=== PATIENT | female | born 1970 | race Caucasian/White ===

== ENCOUNTER 2018-11-08 20:33 | Inpatient (IN) | payer MEDICAID ==
[~2018-11-08] VITALS: Ht 165.1 cm; Wt 91.0 kg
[~2018-11-08 20:33] MED LIST: DOCU-144 PO; FER325 PO; MEDR10TA9 PO; ONDA4TAB14 PO
[2018-11-08] MEDS ORDERED: SOD CHLORIDE 0.9% 500 ML IV ONE (22:00)
[2018-11-08] MEDS ORDERED: morphine 4 MG/ML VIAL IV STA (22:29)
[2018-11-08] MEDS ORDERED: ONDANSETRON 4 MG INJ IV STA (22:29)
[2018-11-09] VITALS (15 sets, daily range): BP systolic 118–140; BP diastolic 66–76; PULSE 58–85; RESP 16–24; Ht 165.1 cm; Wt 91.0 kg
[2018-11-09] MEDS ORDERED: ONDANSETRON 4 MG INJ IV PRN ×2 (02:00→05:00)
[2018-11-09] MEDS ORDERED: ACETAMINOPHEN 325 MG TAB PO PRN ×2 (02:00→05:00)
--- NOTE | 2018-11-09 02:47 | ERD ---
ER Documentation Chief Complaint Chief Complaint VAGINAL BLEEDING WITH CLOTS X 1 MONTH. APPROX 20 PADS/DAY. HPI This is a very pleasant 48-year-old female who comes in with vaginal bleeding with clots for the past month. She said approximately 20 pads per day over the past 4 days. Denies fevers chills. Does feel mildly lightheaded. Complains of lower abdominal cramping as well. Denies any other current issues. ROS All systems reviewed and are negative except as per history of present illness. Medications Home Meds Discontinued Scripts Ondansetron (Ondansetron Odt) 4 Mg Tab.rapdis, 4 MG PO Q6H PRN for NAUSEA AND/OR VOMITING, #20 TAB Prov:PAULO SHERIFF PA-C 03/21/16 Docusate Sodium* (Colace*) 100 Mg Capsule, 100 MG PO TID, #30 CAP Prov:PAULO SHERIFF PA-C 03/21/16 Ferrous Sulfate* (Ferrous Sulfate*) 325 Mg Tabec, 325 MG PO BID, #60 TAB Prov:PAULO SHERIFF PA-C 03/21/16 Allergies Allergies: Uncoded Allergies: UNKNOWN ANTIBIOTIC (Allergy, Mild, PAIN, 12/07/11) PMhx/Soc History of Surgery: Yes (CLAUDIA) Anesthesia Reaction: No Hx Neurological Disorder: No Hx Respiratory Disorders: No Hx Cardiac Disorders: No Hx Psychiatric Problems: No Hx Miscellaneous Medical Probl: No Hx Alcohol Use: No Hx Substance Use: No Hx Tobacco Use: No Smoking Status: Never smoker Physical Exam Vitals Vital Signs Date Temp Pulse Resp B/P (MAP) Pulse Ox O2 O2 Flow FiO2 Time Delivery Rate 11/08/18 98.6 96 18 149/75 99 20:34 (99) Physical Exam Const: No acute distress Head: Atraumatic Eyes: Normal Conjunctiva ENT: Normal External Ears, Nose and Mouth. Neck: Full range of motion. No meningismus. Resp: Clear to auscultation bilaterally Cardio: Regular rate and rhythm, no murmurs Abd: Soft, non tender, non distended. Normal bowel sounds Skin: No petechiae or rashes Back: No midline or flank tenderness Ext: No cyanosis, or edema Neur: Awake and alert Psych: Normal Mood and Affect Result Diagram: 11/08/18214711/08/182147 Results 24 hrs Laboratory Tests Test 11/08/18 21:32 11/08/18 21:48 Urine Color KEERTHI Urine Clarity TURBID Urine pH 6.0 Urine Specific Labadie 1.033 Urine Ketones TRACE mg/dL Urine Nitrite NEGATIVE mg/dL Urine Bilirubin NEGATIVE mg/dL Urine Urobilinogen NEGATIVE mg/dL Urine Leukocyte Esterase NEGATIVE Sav/ul Urine Microscopic RBC > 182 /HPF Urine Microscopic WBC > 182 /HPF Urine Bacteria FEW /HPF Urine Mucus MODERATE /HPF Urine Hemoglobin 3+ mg/dL Urine Glucose 1+ mg/dL Urine Total Protein 2+ mg/dl Urine Test NEGATIVE White Blood Count 8.2 10^3/ul Red Blood Count 3.88 10^6/ul Hemoglobin 7.2 g/dl Hematocrit 26.4 % Mean Corpuscular Volume 68.0 fl Mean Corpuscular Hemoglobin 18.6 pg Mean Corpuscular Hemoglobin Concent 27.3 g/dl Red Cell Distribution Width 21.8 % Platelet Count 154 10^3/UL Mean Platelet Volume fl Immature Granulocytes % 0.400 % Neutrophils % 53.9 % Lymphocytes % 33.9 % Monocytes % 9.8 % Eosinophils % 1.6 % Basophils % 0.4 % Nucleated Red Blood Cells % 0.0 /100WBC Immature Granulocytes # 0.030 10^3/ul Neutrophils # 4.4 10^3/ul Lymphocytes # 2.8 10^3/ul Monocytes # 0.8 10^3/ul Eosinophils # 0.1 10^3/ul Basophils # 0.0 10^3/ul Nucleated Red Blood Cells # 0.0 10^3/ul Prothrombin Time 12.7 Sec Prothrombin Time Ratio 1.0 INR International Normalized Ratio 0.94 Activated Partial Thromboplast Time 20.6 Sec Sodium Level 140 mmol/L Potassium Level 3.9 mmol/L Chloride Level 107 mmol/L Carbon Dioxide Level 24 mmol/L Anion Gap 9 Blood Urea Nitrogen 17 mg/dl Creatinine 0.75 mg/dl Est Glomerular Filtrat Rate mL/min > 60 mL/min Glucose Level 94 mg/dl Calcium Level 9.3 mg/dl Total Bilirubin 0.2 mg/dl Direct Bilirubin 0.00 mg/dl Indirect Bilirubin 0.2 mg/dl Aspartate Amino Transf (AST/SGOT) 23 IU/L Alanine Aminotransferase (ALT/SGPT) 10 IU/L Alkaline Phosphatase 65 IU/L Total Protein 8.2 g/dl Albumin 4.3 g/dl Globulin 3.90 g/dl Albumin/Globulin Ratio 1.10 Current Medications Medications Dose Sig/Tonny Start Time Status Last (Trade) Ordered Route PRN Stop Time Admin Dose Reason Admin Sodium 500 ml @ Q1H ONCE 11/08/18 DC 11/08/18 Chloride 500 mls/hr IV 22:00 22:04 11/08/18 22:59 Morphine 4 mg ONCE STAT 11/08/18 DC 11/08/18 Sulfate IV 22: 22:34 (morphine) 11/08/18 22:31 Ondansetron 4 mg ONCE STAT 11/08/18 DC 11/08/18 HCl (Zofran IV 22: 22:34 Inj) 11/08/18 22:31 Ondansetron 4 mg BRIDGE ORDER 11/09/18 HCl (Zofran PRN IV 02:00 Inj) NAUSEA/VOMITI 11/10/18 01:59 NG 650 mg ER BRIDGE 11/09/18 Acetaminophen PRN PO 02:00 (Tylenol .MILD PAIN 11/10/18 01:59 Tab) 1-3 OR TEMP Procedures/MDM Medical decision makin-year-old female with dysfunctional uterine bleeding and anemia. Patient is typed and crossed for 2 units. A consult was placed for Dr. Moralez 3 telemetric. the hospitalist group has can accept patient to his service. Departure Diagnosis: Primary Impression: Vaginal bleeding Additional Impression: Excessive vaginal bleeding Condition: Serious MARYSE HARVEY Nov 09, 2018 02:47
[2018-11-09] MEDS ORDERED: NACL 0.9% 3 ML SYG IV SCH (05:00)
[2018-11-09] MEDS ORDERED: ALBUTEROL/IPRATROPIUM (NEB) 3 ML AMP HHN PRN (05:00)
--- NOTE | 2018-11-09 08:21 | HP ---
Date/Time of Note Date/Time of Note DATE: 11/09/18 TIME: 08:19 Assessment/Plan VTE Prophylaxis Risk score (from [facility] [place])>0 risk: 1 SCD applied (from [facility] [place]): Yes Pharmacological prophylaxis: NA/contraindicated Pharm contraindication: other (severe anemia) Lines/Catheters IV [facility] (from [facility] Saline Lock Urinary Cath still in place: No Assessment/Plan Assessment/Plan #Vaginal bleeding: Ultrasound showed heterogeneous uterus, cannot rule out fibroids as the possible source of this -Again patient getting PRBC transfuse and, follow-up posttransfusion CBC -Also follow-up recs from [employer]PLI[employer] DEMONSTRATOR team. # anemia: Hemoglobin 6.9 on admission, now getting PRBC transfusion x3 total ordered. -Monitor, check iron panel as MCV is low, follow-up post transfusion CBC -Patient may also benefit from either IV or p.o. iron supplementation Result Diagram: 11/09/18 0533 11/09/18 0533 Results 24hrs Laboratory Tests Test 11/08/18 21:32 11/08/18 21:48 11/09/18 05:33 11/09/18 07:57 Urine Color KEERTHI Urine Clarity TURBID A Urine pH 6.0 Urine Specific 1.033 H [place] Urine Ketones TRACE A Urine Nitrite NEGATIVE Urine Bilirubin NEGATIVE Urine NEGATIVE Urobilinogen Urine Leukocyte NEGATIVE Esterase Urine Microscopic > 182 H RBC Urine Microscopic > 182 H WBC Urine Bacteria FEW A Urine Mucus MODERATE Urine Hemoglobin 3+ H Urine Glucose 1+ H Urine Total 2+ H Protein Urine NEGATIVE Test White Blood Count 8.2 5.8 # Red Blood Count 3.88 L 3.57 L Hemoglobin 7.2 L 6.9 *L Hematocrit 26.4 L 24.6 L Mean Corpuscular 68.0 L 68.9 L Volume Mean Corpuscular 18.6 L 19.3 L Hemoglobin Mean Corpuscular 27.3 L 28.0 L Hemoglobin Concen t Red Cell 21.8 H 22.7 H Distribution Width Platelet Count 154 209 # Mean Platelet 10.8 H Volume Immature 0.400 0.200 Granulocytes % Neutrophils % 53.9 45.1 Lymphocytes % 33.9 38.3 Monocytes % 9.8 12.9 H Eosinophils % 1.6 3.0 Basophils % 0.4 0.5 Nucleated Red 0.0 0.0 Blood Cells % Immature 0.030 0.010 Granulocytes # Neutrophils # 4.4 2.6 Lymphocytes # 2.8 2.2 Monocytes # 0.8 0.7 Eosinophils # 0.1 0.2 Basophils # 0.0 0.0 Nucleated Red 0.0 0.0 Blood Cells # Prothrombin Time 12.7 Prothrombin Time 1.0 Ratio INR International 0.94 Normalized Ratio Activated 20.6 L Partial Thrombopl ast Time Sodium Level 140 141 Potassium Level 3.9 4.0 Chloride Level 107 112 H Carbon Dioxide 24 22 Level Anion Gap 9 7 Blood Urea 17 13 Nitrogen Creatinine 0.75 0.56 Est Glomerular > 60 > 60 Filtrat Rate mL/min Glucose Level 94 99 Calcium Level 9.3 8.3 L Total Bilirubin 0.2 0.5 Direct Bilirubin 0.00 0.00 Indirect 0.2 0.5 Bilirubin Aspartate Amino 23 17 Transf (AST/SGOT) Alanine 10 L 15 Aminotransferase (ALT/SGPT) Alkaline 65 55 Phosphatase Total Protein 8.2 H 6.4 # Albumin 4.3 3.3 # Globulin 3.90 H 3.10 Albumin/Globulin 1.10 1.06 Ratio Phosphorus Level 4.6 Magnesium Level 1.9 Lab Scanned BLOOD TRANSFUSIO Report N HPI/ROS Admit Date/Time Admit Date/Time Nov 09, 2018 at 01:34 Hx of Present Illness Patient is a 48-year-old female who presents the ER complaining of vaginal bleeding and suprapubic pain. She said recently especially over the past 4 days having a large amount of vaginal bleeding. Denied prior history. She also reported pain in the suprapubic area. She presented to ER, she was found to have a hemoglobin of 7.2. Pelvic ultrasound shows Enlarged heterogeneous uterus with no discrete mass PMH/Family/Social Past Medical History Medical History: other (see hpi) Medications Current Medications Ondansetron HCl (Zofran Inj) 4 mg BRIDGE ORDER PRN IV NAUSEA/VOMITING; Start 11/09/18 at 02:00; Stop 11/10/18 at 01:59 Acetaminophen (Tylenol Tab) 650 mg ER BRIDGE PRN PO .MILD PAIN 1-3 OR TEMP; Start 11/09/18 at 02:00; Stop 11/10/18 at 01:59 IV Flush (NS 3 ml) 3 ml PER PROTOCOL IV ; Start 11/09/18 at 05:00 Ondansetron HCl (Zofran Inj) 4 mg Q6H PRN IV NAUSEA/VOMITING; Start 11/09/18 at 05:00 Acetaminophen (Tylenol Tab) 650 mg Q6H PRN PO .PAIN 1-3 OR TEMP; Start 11/09/18 at 05:00 Albuterol/ Ipratropium (Duoneb) 3 ml Q2H RESP THERAPY PRN HHN SHORTNESS OF BREATH; Start 11/09/18 at 05:00 Ceftriaxone Sodium 50 ml @ 100 mls/hr DAILY IVPB ; Start 11/09/18 at 09:00 Uncoded Allergies: UNKNOWN ANTIBIOTIC (Allergy, Mild, PAIN, 12/07/11) Past Surgical History Past Surgical Hx: other (see hpi) Family History Significant Family History: no pertinent family hx Social History Alcohol Use: none Smoking Status: Never smoker Drug Use: none Exam/Review of Systems Vital Signs Vitals Vital Signs Date Temp Pulse Resp B/P (MAP) Pulse Ox O2 O2 Flow FiO2 Time Delivery Rate 11/09/18 98.0 70 18 139/67 99 Room Air 03:57 (91) Intake and Output 11/08/18 11/08/18 11/09/18 1515:00 23:00 07:00 IntakeIntake Total 100 ml BalanceBalance 100 ml Exam Constitutional: alert, oriented, well developed Head: normocephalic Eyes: EOMI, PERRL ENMT: nl external ears & nose Neck: supple Respiratory: clear to auscultation, normal air movement Cardiovascular: nl pulses Gastrointestinal: soft Extremities: normal pulses MARYSE GARNICA MD Nov 09, 2018 08:20
[2018-11-09] MEDS ORDERED: CEFTRIAXONE 1 GM/50 ML (PMX) 50 ML IVPB SCH (09:00)
--- NOTE | 2018-11-09 13:16 | PN ---
Date/Time of Note Date/Time of Note DATE: 11/09/18 TIME: 13:03 Assessment/Plan VTE Prophylaxis Risk score (from Ns)>0 risk: 1 SCD applied (from Ns): Yes Pharmacological prophylaxis: NA/contraindicated Pharm contraindication: bleeding Lines/Catheters [facility]from [facility] Saline Lock Urinary Cath still in place: No Assessment/Plan Hospital Course S: Patient receiving blood transfusion now. Waiting to be seen by CALIBRATION CHECKER team. Denies any significant abdominal pain at this time. O: VS- see below PE: Gen: No acute distress Head: Atraumatic Eyes: Normal Conjunctiva ENT: Normal External Ears, Nose and Mouth. Neck: supple Resp: Clear to auscultation bilaterally Cardio: Regular rate and rhythm, no murmurs Abd: Soft, non tender, non distended. Normal bowel sounds Ext: No B/L LE edema Neuro: no focal deficits A/P: 48-year-old female who presents the ER complaining of vaginal bleeding and suprapubic pain, and also with anemia. #Vaginal bleeding: Ultrasound showed heterogeneous uterus, cannot rule out fibroids as the possible source of this -Again patient getting PRBC transfuse and, follow-up posttransfusion CBC -Also follow-up recs from CALIBRATION CHECKER team. # anemia: Hemoglobin 6.9 on admission, now getting PRBC transfusion x3 total ordered. -Monitor, check iron panel as MCV is low, follow-up post transfusion CBC -Patient may also benefit from either IV or p.o. iron supplementation Result Diagram: 11/09/18 0533 11/09/18 0533 Results 24hrs Laboratory Tests Test 11/08/18 21:32 11/08/18 21:48 11/09/18 05:33 11/09/18 07:57 Urine Color KEERTHI Urine Clarity TURBID A Urine pH 6.0 Urine Specific 1.033 H [place] Urine Ketones TRACE A Urine Nitrite NEGATIVE Urine Bilirubin NEGATIVE Urine NEGATIVE Urobilinogen Urine Leukocyte NEGATIVE Esterase Urine Microscopic > 182 H RBC Urine Microscopic > 182 H WBC Urine Bacteria FEW A Urine Mucus MODERATE Urine Hemoglobin 3+ H Urine Glucose 1+ H Urine Total 2+ H Protein Urine NEGATIVE Test White Blood Count 8.2 5.8 # Red Blood Count 3.88 L 3.57 L Hemoglobin 7.2 L 6.9 *L Hematocrit 26.4 L 24.6 L Mean Corpuscular 68.0 L 68.9 L Volume Mean Corpuscular 18.6 L 19.3 L Hemoglobin Mean Corpuscular 27.3 L 28.0 L Hemoglobin Concen t Red Cell 21.8 H 22.7 H Distribution Width Platelet Count 154 209 # Mean Platelet 10.8 H Volume Immature 0.400 0.200 Granulocytes % Neutrophils % 53.9 45.1 Lymphocytes % 33.9 38.3 Monocytes % 9.8 12.9 H Eosinophils % 1.6 3.0 Basophils % 0.4 0.5 Nucleated Red 0.0 0.0 Blood Cells % Immature 0.030 0.010 Granulocytes # Neutrophils # 4.4 2.6 Lymphocytes # 2.8 2.2 Monocytes # 0.8 0.7 Eosinophils # 0.1 0.2 Basophils # 0.0 0.0 Nucleated Red 0.0 0.0 Blood Cells # Prothrombin Time 12.7 Prothrombin Time 1.0 Ratio INR International 0.94 Normalized Ratio Activated 20.6 L Partial Thrombopl ast Time Sodium Level 140 141 Potassium Level 3.9 4.0 Chloride Level 107 112 H Carbon Dioxide 24 22 Level Anion Gap 9 7 Blood Urea 17 13 Nitrogen Creatinine 0.75 0.56 Est Glomerular > 60 > 60 Filtrat Rate mL/min Glucose Level 94 99 Calcium Level 9.3 8.3 L Total Bilirubin 0.2 0.5 Direct Bilirubin 0.00 0.00 Indirect 0.2 0.5 Bilirubin Aspartate Amino 23 17 Transf (AST/SGOT) Alanine 10 L 15 Aminotransferase (ALT/SGPT) Alkaline 65 55 Phosphatase Total Protein 8.2 H 6.4 # Albumin 4.3 3.3 # Globulin 3.90 H 3.10 Albumin/Globulin 1.10 1.06 Ratio Segmented 43 Neutrophils % (Manual) Lymphocytes % 50 (Manual) Monocytes % 5 (Manual) Eosinophils % 1 (Manual) Basophils % 1 (Manual) Lymphocytes 2.9 (Manual) Monocytes # 0.2 L (Manual) Basophils # 0.0 (Manual) Platelet Estimate NORMAL Polychromasia 3+ Hypochromasia 3+ Poikilocytosis 2+ Anisocytosis 2+ Microcytosis 2+ Target Cells 1+ Ovalocytes 1+ Elliptocytes 1+ Phosphorus Level 4.6 Magnesium Level 1.9 Lab Scanned BLOOD TRANSFUSIO Report N Exam/Review of Systems Exam Vitals Vital Signs Date Temp Pulse Resp B/P (MAP) Pulse Ox O2 O2 Flow FiO2 Time Delivery Rate 11/09/18 98.3 85 18 125/73 98 Room Air 08:21 (90) Intake and Output 11/08/18 11/08/18 11/09/18 1515:00 23:00 07:00 IntakeIntake Total 100 ml BalanceBalance 100 ml Results Results 24hrs Laboratory Tests Test 11/08/18 21:32 11/08/18 21:48 11/09/18 05:33 11/09/18 07:57 Urine Color KEERTHI Urine Clarity TURBID A Urine pH 6.0 Urine Specific 1.033 H [place] Urine Ketones TRACE A Urine Nitrite NEGATIVE Urine Bilirubin NEGATIVE Urine NEGATIVE Urobilinogen Urine Leukocyte NEGATIVE Esterase Urine Microscopic > 182 H RBC Urine Microscopic > 182 H WBC Urine Bacteria FEW A Urine Mucus MODERATE Urine Hemoglobin 3+ H Urine Glucose 1+ H Urine Total 2+ H Protein Urine NEGATIVE Test White Blood Count 8.2 5.8 # Red Blood Count 3.88 L 3.57 L Hemoglobin 7.2 L 6.9 *L Hematocrit 26.4 L 24.6 L Mean Corpuscular 68.0 L 68.9 L Volume Mean Corpuscular 18.6 L 19.3 L Hemoglobin Mean Corpuscular 27.3 L 28.0 L Hemoglobin Concen t Red Cell 21.8 H 22.7 H Distribution Width Platelet Count 154 209 # Mean Platelet 10.8 H Volume Immature 0.400 0.200 Granulocytes % Neutrophils % 53.9 45.1 Lymphocytes % 33.9 38.3 Monocytes % 9.8 12.9 H Eosinophils % 1.6 3.0 Basophils % 0.4 0.5 Nucleated Red 0.0 0.0 Blood Cells % Immature 0.030 0.010 Granulocytes # Neutrophils # 4.4 2.6 Lymphocytes # 2.8 2.2 Monocytes # 0.8 0.7 Eosinophils # 0.1 0.2 Basophils # 0.0 0.0 Nucleated Red 0.0 0.0 Blood Cells # Prothrombin Time 12.7 Prothrombin Time 1.0 Ratio INR International 0.94 Normalized Ratio Activated 20.6 L Partial Thrombopl ast Time Sodium Level 140 141 Potassium Level 3.9 4.0 Chloride Level 107 112 H Carbon Dioxide 24 22 Level Anion Gap 9 7 Blood Urea 17 13 Nitrogen Creatinine 0.75 0.56 Est Glomerular > 60 > 60 Filtrat Rate mL/min Glucose Level 94 99 Calcium Level 9.3 8.3 L Total Bilirubin 0.2 0.5 Direct Bilirubin 0.00 0.00 Indirect 0.2 0.5 Bilirubin Aspartate Amino 23 17 Transf (AST/SGOT) Alanine 10 L 15 Aminotransferase (ALT/SGPT) Alkaline 65 55 Phosphatase Total Protein 8.2 H 6.4 # Albumin 4.3 3.3 # Globulin 3.90 H 3.10 Albumin/Globulin 1.10 1.06 Ratio Segmented 43 Neutrophils % (Manual) Lymphocytes % 50 (Manual) Monocytes % 5 (Manual) Eosinophils % 1 (Manual) Basophils % 1 (Manual) Lymphocytes 2.9 (Manual) Monocytes # 0.2 L (Manual) Basophils # 0.0 (Manual) Platelet Estimate NORMAL Polychromasia 3+ Hypochromasia 3+ Poikilocytosis 2+ Anisocytosis 2+ Microcytosis 2+ Target Cells 1+ Ovalocytes 1+ Elliptocytes 1+ Phosphorus Level 4.6 Magnesium Level 1.9 Lab Scanned BLOOD TRANSFUSIO Report N Medications Medication Current Medications IV Flush (NS 3 ml) 3 ml PER PROTOCOL IV ; Start 11/09/18 at 05:00 Ondansetron HCl (Zofran Inj) 4 mg Q6H PRN IV NAUSEA/VOMITING; Start 11/09/18 at 05:00 Acetaminophen (Tylenol Tab) 650 mg Q6H PRN PO .PAIN 1-3 OR TEMP; Start 11/09/18 at 05:00 Albuterol/ Ipratropium (Duoneb) 3 ml Q2H RESP THERAPY PRN HHN SHORTNESS OF BREATH; Start 11/09/18 at 05:00 KEITH MOCK Nov 09, 2018 13:16
[2018-11-09] MEDS: MEDROXYPROGESTERONE 10 MG TAB PO SCH (15:27)
--- NOTE | 2018-11-09 16:50 | QN ---
Documentation Comment Dock Operator Consult: Thank you for consulting with us It was brought up to my Attention that ,oncall laborist from yesterday were consulted on this patient 48 yo with Menorrhagia and Anemia , PMH Denies PSH denies Allergy To unknown Antibiotics Hb 6.9 PE VS stable Gen NAD Abd soft NT ND Genitalia 2-3cc clots in vaginal vault --->patient needs a D&C&Hysteroscopy or Endometrial biopsy that can be done as an outpatient --->She is not NPO at this time so the procedure is not doable during my call.The patient will be signed out to ,next laborist --->I recommend Provera 40 mg PO daily or Megace 40 mg PO daily --->If there is any increased Vaginal bleeding or any new symptoms .please let Dock Operator team know Thanks RAMY DOYLE M.D. Nov 09, 2018 16:50
[2018-11-10 02:08] VITALS: BP 116/69; PULSE 74; RESP 18
[2018-11-10 07:37] VITALS: BP 112/66; PULSE 60; RESP 18
[2018-11-10] MEDS: MEDROXYPROGESTERONE 10 MG TAB PO SCH (09:28)
--- NOTE | 2018-11-10 12:59 | PDOCDIS ---
Discharge Instructions CONDITION [id number] Patient Condition: [id number] Stable HOME CARE INSTRUCTIONS: [id number] Diet Instructions: [id number] Low Fat /Cholesterol ACTIVITY: [id number] Activity Restrictions: [id number] Slowly Increase Activity Rest between Activity Avoid heavy lifting FOLLOW UP/APPOINTMENTS Follow-up Plan Please take your medication as prescribed, see your doctor in clinic in the next 1 week. KEITH MOCK. Nov 10, 2018 12:59
--- NOTE | 2018-11-10 13:16 | DS ---
Date/Time of Note Date/Time of Note DATE: 11/10/18 TIME: 13:14 Discharge Summary Admission/Discharge Info Admit Date/Time Nov 09, 2018 at 01:34 Discharge Date/Time Discharge Diagnosis #Vaginal bleeding: Resolving now, ultrasound showed heterogeneous uterus, cannot rule out fibroids as the possible source of this -evaluated by [employer] AS[employer] SUPERVISOR team and started on progesterone # anemia: Microcytic likely secondary deficiency anemia, status post PRBC transfusion, hemoglobin stable now Patient Condition: Stable Hospital Course Patient was admitted and given blood transfusion x3. Hemoglobin improved afterwards. Patient's vaginal bleeding symptoms improved and was minimal by the time of discharge. She was evaluated by [employer] SUPERVISOR team and started on progesterone. She was also recommended eventually for an outpatient endometrial biopsy which we are trying to arrange for the patient to follow-up with an [employer] SUPERVISOR doctor in the clinic. Her vital signs are stable today, she is ambulating, tolerating p.o. diet. She will be discharged home today improved condition with those resources. See below for full list of discharge medications. Home Meds Active Scripts Docusate Sodium* (Colace*) 100 Mg Capsule, 100 MG PO BID, #60 CAP 4 Refills Prov:NISHKEITH S. 11/10/18 Ferrous Sulfate* (Ferrous Sulfate*) 325 Mg Tabec, 325 MG PO BID, #60 TAB 5 Refills Prov:MARITZAKEITH S. 11/10/18 Medroxyprogesterone Acetate* (Medroxyprogesterone Acetate*) 10 Mg Tablet, 40 MG PO DAILY, #30 TAB 3 Refills Prov:MARITZAROSAKEITH S. 11/10/18 Discontinued Scripts Ondansetron (Ondansetron Odt) 4 Mg Tab.rapdis, 4 MG PO Q6H PRN for NAUSEA AND/OR VOMITING, #20 TAB Prov:PAULO SHERIFF PA-C 03/21/16 Docusate Sodium* (Colace*) 100 Mg Capsule, 100 MG PO TID, #30 CAP Prov:PAULO SHERIFF PA-C 03/21/16 Ferrous Sulfate* (Ferrous Sulfate*) 325 Mg Tabec, 325 MG PO BID, #60 TAB Prov:PAULO SHERIFF PA-C 03/21/16 Follow-up Plan Please take your medication as prescribed, see your doctor in clinic in the next 1 week. Primary Care Provider Not On Staff Doctor Time spent on discharge: > 30 minutes Pending Labs Laboratory Tests Test 11/10/18 04:39 11/10/18 07:09 White Blood Count 5.9 10^3/ul (4.8-10.8) Red Blood Count 4.06 10^6/ul (4.20-5.40) Hemoglobin 8.5 g/dl (12.0-16.0) Hematocrit 29.0 % (37.0-47.0) Mean Corpuscular Volume 71.4 fl (82.0-101.0) Mean Corpuscular Hemoglobin 20.9 pg (29.0-33.0) Mean Corpuscular 29.3 g/dl (32.0-37.0) Hemoglobin Concent Red Cell Distribution Width 24.2 % (11.5-14.5) Platelet Count 204 10^3/UL (140-415) Mean Platelet Volume 10.3 fl (7.4-10.4) Immature Granulocytes % 0.300 % (0.001-0.429) Neutrophils % 55.4 % (39.0-77.0) Lymphocytes % 31.9 % (15.0-51.0) Monocytes % 9.5 % (0.0-11.0) Eosinophils % 2.4 % (0.0-7.0) Basophils % 0.5 % (0.0-2.0) Nucleated Red Blood Cells % 0.0 /100WBC (0.0-0.0) Immature Granulocytes # 0.020 10^3/ul (0.0-0.031) Neutrophils # 3.3 10^3/ul (1.6-7.5) Lymphocytes # 1.9 10^3/ul (0.8-2.9) Monocytes # 0.6 10^3/ul (0.3-0.9) Eosinophils # 0.1 10^3/ul (0.0-0.5) Basophils # 0.0 10^3/ul (0.0-0.1) Nucleated Red Blood Cells # 0.0 10^3/ul (0.0-0.0) Sodium Level 143 mmol/L (135-144) Potassium Level 4.5 mmol/L (3.5-5.1) Chloride Level 111 mmol/L (97-110) Carbon Dioxide Level 26 mmol/L (21-31) Anion Gap 6 (5-13) Blood Urea Nitrogen 11 mg/dl (7-20) Creatinine 0.58 mg/dl (0.44-1.00) Est Glomerular Filtrat Rate mL/min > 60 mL/min (>60) Glucose Level 111 mg/dl (70-220) Hemoglobin A1c 5.0 % (0-5.9) Calcium Level 8.9 mg/dl (8.4-10.2) Phosphorus Level 4.5 mg/dl (2.5-4.9) Magnesium Level 2.1 mg/dl (1.7-2.5) Lab Scanned Report BLOOD TRANSFUSION KEITH MOCK. Nov 10, 2018 13:16
[2018-11-10 15:00] VITALS: BP 128/75; PULSE 68; RESP 18
== END 2018-11-10 18:57 | disposition home or self-care (01) | DRG 812 ==
LOC: E/R 20:33 → MS1 11-09 01:34
PROVIDERS: ADMIT Internal Medicine; ATTEND Hospitalist
PROC: 30233N1 Transfusion of Nonautologous Red Blood Cells into Peripheral Vein, Percutaneous Approach (ICD-10-PCS; principal; 2018-11-09)
DX: D50.0 Iron deficiency anemia secondary to blood loss (chronic) (principal); N93.8 Other specified abnormal uterine and vaginal bleeding
CPT/HCPCS: 36415; 36430; 76830; 76856; 80048; 80053; 81001; 83036; 83540; 83735; 84100; 84703; 85025; 85610; 85730; 86850; 86900; 86901; 86920; 87086; 96361; 96374; 96375; J0696; J2270; J2405; J7040; P9016